=== PATIENT | female | born 1975 | race African-American/Black ===

== ENCOUNTER 2018-08-16 19:26 | Emergency (ER) | payer BC ==
[2018-08-16 20:07] VITALS: BP 127/77
--- NOTE | 2018-08-16 20:51 | UC ---
Shoulder Pain HPI - HPI Summary HPI Summary: 43 -year-old female with a sudden onset of sharp left shoulder and left upper chest pain earlier this afternoon. She denies any radiation of pain, no nausea , no diaphoresis. She states her father did have a heart attack before the age of 50. Her shoulder hurts more with movement and range of motion is limited due to pain. - History of Current Complaint Chief Complaint: UCUpperExtremity Stated Complaint: LT SHOULDER INJURY Time Seen by Provider: 08/16/18 20:29 Hx Obtained From: Patient Hx Last Menstrual Period: 07/24/18 ?: No Onset/Duration: Sudden Onset - Sudden onset earlier this afternoon. Timing: Constant Severity Initially: Moderate Severity Currently: Mild Pain Intensity: 7 Character: Sharp Aggravating Factor(s): Movement Alleviating Factor(s): Nothing Associated Signs And Symptoms: Positive: Negative - Allergies/Home Medications Allergies/Adverse Reactions: Allergies Allergy/AdvReac Type Severity Reaction Status Date / Time Penicillins Allergy Hives Verified 08/16/18 19:58 Home Medications: Home Medications Acetaminophen [Extra Strength Non-Aspirin] 1,000 mg PO Q6H PRN 08/16/18 [ History Confirmed 08/16/18] Acetaminophen/Pamabrom [Midol Caplet] 2 each PO DAILY PRN 08/16/18 [History Confirmed 08/16/18] Lansoprazole [Prevacid] 15 mg PO BEDTIME PRN 08/16/18 [History Confirmed ] PMH/Surg Hx/FS Hx/Imm Hx Previously Healthy: Yes - Surgical History Surgical History: Yes Surgery Procedure, Year, and Place: LEEP x2. . appendectomy - Family History Known Family History: Positive: Cardiac Disease - Father had a heart attack before the age of 50 - Social History Alcohol Use: None Substance Use Type: None Smoking Status (MU): Current Every Day Smoker Type: Cigarettes Amount Used/How Often: 1 PPD Length of Time of Smoking/Using Tobacco: 20 years Have You Smoked in the Last Year: Yes Review of Systems All Other Systems Reviewed And Are Negative: Yes Motor: Positive: Decreased ROM Neurovascular: Positive: Negative Musculoskeletal: Positive: Decreased ROM - Pain with range of motion of her left shoulder. Neurological: Positive: Negative Is Patient Immunocompromised?: No Physical Exam Triage Information Reviewed: Yes Appearance: Well-Appearing, No Pain Distress, Well-Nourished Vital Signs: Initial Vital Signs Temp 97.4 F 08/16/18 20:03 Pulse 83 08/16/18 20:03 Resp 24 08/16/18 20:03 BP 127/77 08/16/18 20:03 Pulse Ox 100 08/16/18 20:03 Vital Signs Reviewed: Yes Respiratory: Positive: Lungs clear, Normal breath sounds, No respiratory distress, No accessory muscle use - Tenderness on palpation left upper chest. Cardiovascular: Positive: RRR, No Murmur, Pulses Normal, Brisk Capillary Refill Musculoskeletal: Positive: Strength Intact, ROM Limited @ - Range of motion of left arm and shoulder limited due to pain. She is able to abduct her left arm approximate 90. Neurological: Positive: Alert, Muscle Tone Normal Psychological Exam: Normal Skin Exam: Normal Shoulder Course/Dx - Course Course Of Treatment: Chest x-ray: Negative, Left shoulder x-ray: Negative I believe this is more of a muscle strain. She is to apply heat to the sore areas, take Motrin for pain and avoid movements that cause pain. No work tomorrow. I did stress to her if she develops any radiation of pain, diaphoresis, nausea radiating up into her jaw she is to call 911 and go to the emergency room. I do not feel this is cardiac in nature. Prior to discharge the patient told me that she works as a landscaping manager however the past few days she has had to do the cleaning herself therefore I think this lends itself to being more of a muscular strain. If there is any change in the x-ray report we will give her a call. - Differential Dx/Diagnosis Provider Diagnosis: Shoulder strain Discharge - Sign-Out/Discharge Documenting (check all that apply): Patient Departure All imaging exams completed and their final reports reviewed: No - Discharge Plan Condition: Fair Disposition: HOME Patient Education Materials: Shoulder Pain (ED) Forms: *Work Release Referrals: Juan Antonio Farmer MD [Primary Care Provider] - Additional Instructions: Avoid movements that cause pain, you may apply heat to the sore areas, take Motrin every 8 hours for pain. Definite follow-up with your primary care provider or an orthopedist if no improvement in one or 2 days. The x-rays as interpreted by myself and Dr. Molina were negative for fracture however the radiologist will review those in the morning and we will contact you if there is any change in interpretation. If you have any worsening chest pain, sweating , nausea, radiation of pain up into her neck or down her arms, shortness of breath, you are to go immediately to the emergency room or call 911. - Billing Disposition and Condition Condition: FAIR Disposition: Home - Attestation Statements Provider Attestation: Per institutional requirements, I have reviewed the chart, however, I was not consulted specifically or made aware of this patient by the midlevel provider. I did not personally evaluate, interact with , or disposition this patient.
--- NOTE | 2018-08-17 09:31 | UC ---
- Progress Note Progress Note: chest xray report : no acute disease left shoulder xray report : IMPRESSION: No fracture of the left shoulder is noted. Course/Dx - Diagnoses Provider Diagnoses: Shoulder strain Discharge - Sign-Out/Discharge Documenting (check all that apply): Patient Departure All imaging exams completed and their final reports reviewed: Yes - Discharge Plan Condition: Fair Disposition: HOME Patient Education Materials: Shoulder Pain (ED) Forms: *Work Release Referrals: Juan Antonio Farmer MD [Primary Care Provider] - Additional Instructions: Avoid movements that cause pain, you may apply heat to the sore areas, take Motrin every 8 hours for pain. Definite follow-up with your primary care provider or an orthopedist if no improvement in one or 2 days. The x-rays as interpreted by myself and Dr. Molina were negative for fracture however the radiologist will review those in the morning and we will contact you if there is any change in interpretation. If you have any worsening chest pain, sweating , nausea, radiation of pain up into her neck or down her arms, shortness of breath, you are to go immediately to the emergency room or call 911. - Billing Disposition and Condition Condition: FAIR Disposition: Home
== END 2018-08-16 22:10 | disposition home or self-care (01) ==
LOC: UCCORT 19:26
DX: S46.912A Strain of unspecified muscle, fascia and tendon at shoulder and upper arm level, left arm, initial encounter (principal); F17.210 Nicotine dependence, cigarettes, uncomplicated; Z88.0 Allergy status to penicillin; X58.XXXA Exposure to other specified factors, initial encounter; Y92.9 Unspecified place or not applicable
CPT/HCPCS: 71046; 99201; G0463